=== PATIENT | male | born 1980 | race Caucasian/White ===

== ENCOUNTER 2019-06-30 08:05 | Outpatient (CLI) | payer BC, SELFPAY ==
--- NOTE | 2019-07-11 07:22 | SLEEP_ITS ---
Basic Nocturnal Polysomnogram. DATE OF STUDY: 06/30/2019 REASON FOR THIS STUDY: Insomnia, unspecified sleep apnea. HISTORY: The patient is a 39-year-old male, 72 inches tall, weighing 195 pounds with a body mass index of 24.1. His complaints include loud snoring with witnessed apneas, never feeling completely rested and this has been going on many years. He has tried mouthguard and adhesive strips without success. There is a positive family history of sleep apnea in his father. He has difficulty waking in the morning. He has excessive daytime sleepiness and wakes throughout the night. He constantly snores loudly enough that others complain about it. He rarely awakens at night with heartburn, belching, or coughing. He occasionally has trouble sleeping if he has a cold. He does not have any kassandra gasping for breath at night. He has been told by others on occasion that he has difficulty breathing at night. He does not sweat excessively at night or have pounding of his heart at night. He rarely falls asleep during the day, never involuntarily, and never while driving. There is no loss of muscle tone with strong emotion. He does not feel paralyzed on waking or falling asleep. He does not have vivid dreamlike scenes upon waking or falling asleep. He is not afraid to go to sleep. He does not have nightmares. He rarely remembers his dreams. He rarely kicks at night. Bedtime is 10 p.m., taking 10 minutes to fall asleep, waking 1 or 2 times at night for an hour or more. During this time, he will watch TV. He wakes in the morning at 5:30 a.m. On the weekends, he sleeps an hour later. He does take naps and a short nap can be refreshing. MEDICAL COMORBIDITIES: Anxiety. MEDICATIONS: Buspirone 10 mg a day. HABITS: Tobacco 2 cigarettes a day. Caffeine 2 beverages a day. Alcohol 1 per day. DESCRIPTION OF THE STUDY: On the Adrian Sleepiness Scale, his score was 4. This was conducted as a full night attended nocturnal polysomnogram using the [employer] multiple channel system including EOG, EEG, submental EMG, EKG, nasal and oral airflow using thermistors and nasal pressure sensors, chest and abdominal belts, body position data, and pulse oximetry. The study was scored using CMS guidelines. Duration of the study was 453 minutes. Sleep time was 361 minutes. Sleep efficiency was 79.7%. Sleep latency was 11.9 minutes. REM latency was prolonged at 145 minutes. He had 37 awakenings. The patient spent 18.2% of the study, awake after sleep onset 80.1 minutes. Sleep architecture showed 7% stage 1 sleep, 53.4% stage 2 sleep. No stage 3 sleep and 21.4% stage REM. The sleep architecture by stages of sleep was not bad other than increased wakefulness after sleep onset and multiple shifts between wakefulness stage I and stage II during sleep. He spent 8% of the study supine, the remainder was nonsupine. He had 4 REM cycles. The overall apnea-hypopnea index was 1. He had no supine REM unfortunately. He had no events in nonsupine REM. He had 3 obstructive apneas in supine non-REM for an index of 5.1. He had 3 obstructive apneas in nonsupine non-REM for an index of 0.8. The supine index was 5.1. Nonsupine index was 0.6. Lowest desaturation 93%. No time spent below 88%. There was 1 desaturation of 4% or greater for an index of 0.1. AROUSALS: 107 arousals for an index of 14.2. He had 3 apneas for an index of 0.4, 24 snores for an index of 33.2, 79 spontaneous arousals for an index of 10.5, and 1 limb movement causing arousal for an index of 0.1. LIMB MOVEMENTS: 6 limb movements for an index of 1.0. SNORING: Moderate, 188 episodes. EKG: Showed sinus bradycardia with a mean heart rate of 55. EEG: Unremarkable. IMPRESSION: This attended sleep study s
== END 2019-06-30 08:06 | disposition home or self-care (01) ==
LOC: ANHCSM 08:05
PROVIDERS: PCP Family Medicine; Visit Provider Family Medicine
DX: G47.00 Insomnia, unspecified (principal); G47.30 Sleep apnea, unspecified
CPT/HCPCS: 95810

== ENCOUNTER → 2020-12-19 15:13 | Outpatient (CLI) | payer BC, SELFPAY ==
--- NOTE | ~2020-12-19 | XR_ITS ---
EXAMINATION:XR cervical spine 4-5V DATE: 12/19/2020 15:37 INDICATION: Neck pain TECHNIQUE: AP, lateral, lateral swimmers and odontoid views of the cervical spine are provided. COMPARISON: 04/14/2012 FINDINGS: Alignment is normal. The odontoid is intact. No fracture is identified. Vertebral body heig hts and disk spaces are normal. Prevertebral soft tissues are normal. Small degenerative osteophytes project from the anterior endplates of multiple vertebral bodies. There is mild multilevel facet and vertebral joint osteoarthritis IMPRESSION: 1. Mild cervical spondylosis without acute findings. Reviewed, dictated and finalized at location B.
--- NOTE | ~2020-12-19 | XR_ITS ---
EXAMINATION: XR lumbar spine 6V w bending DATE: 12/19/2020 15:37 INDICATION: Low back pain TECHNIQUE: Anteroposterior, lateral in neutral, flexion and extension, and bilateral oblique views of the lumbar spine, and cone-down lateral view of the lumbosacral junction were obtained. COMPARISON: None. FINDINGS: Bone alignment is normal. There is no laxity with flexion or extension. No fracture is iden tified. The vertebral body heights are maintained. The intervertebral disc spaces are normal. There i s mild facet osteoarthritis of the lower lumbar spine. IMPRESSION: 1. Mild lumbar spondylosis without acute findings. Reviewed, dictated and finalized at location B.
== END ==
PROVIDERS: PCP Family Medicine; Visit Provider Nurse Practitioner Family
DX: M47.896 Other spondylosis, lumbar region (principal); M47.892 Other spondylosis, cervical region
CPT/HCPCS: 72050; 72114

== ENCOUNTER 2025-02-05 00:38 | Day surgery (SDC) | payer BC, SELFPAY ==
[2025-01-28 13:31] VITALS: BMI 27.1
--- OUTSIDE RECORDS SUMMARY | 2025-02-05 00:41 | XMS_ITS | Encounter Summary ---
Author Organization [facility] Address [address] [place] [address] Care Team Providers Care Cra Name Role Phone Provider, No Pcp Primary Care Provider Unavailab Eris Lemus Primary Care Provider Encounter Details Date Type Department Care Team (Late Contact Info) Description 02/18/2024 Lab Requisition [facility] - Pathology Lab [address] [place] [address] Najma Gibbs MD [address] [place] [address] [place] [address] Illness, unspecified Social History Tobacco Use Types Packs/Day Years Used Date Smoking Tobacco: Some Days Cigarettes Smokeless Tobacco: Never Alcohol Use Standard Drinks/Week Comments Yes 0 (1 standard drink = 0.6 oz pur e alcohol) occ Sex and Gender Information Value Date Recorded Sex Assigned at Not on file 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 Gender Identity Not on file Sexual Orientation Not on file documented as of this encounter Plan of Treatment Upcoming Encounters Date Type Department Care Team (Late Contact Info) Description 03/21/2025 3:30 PM CR[employer] G[employer]IN OR [employer]IVE[employer] FARM MANAGER Office Visit [facility] - ENT [address] [place] [phone] Najma Gibbs MD [address] [place] [address] [place] [address] documented as of this encounter Procedures Procedure Name Priority Date/Time Associated Diagnosis Comments PATHOLOGY TISSUE Routine 02/17/2024 8:20 AM CDT Illness, unspecified documented in this encounter Results * PATHOLOGY TISSUE (02/17/2024 8:20 AM CDT) Case Report Surgical Pathology Report Case: [id number] Authorizing Provider: Najma Gibbs MD Collected: 02/17/2024 08:20 AM Ordering Location: [facility] - Received: 02/18/2024 11:51 AM Pathology Lab Pathologist: Pedrito De La Torre MD Specimen: Nasal Contents, bilateral nasal contents 02/21/2024 1:37 PM CDT [facility] Final Diagnosis Sinus contents, removal: Benign respiratory mucosa with chronic inflammation and tissue eosinophilia. 02/21/2024 1:37 PM CDT [facility] at 1337 CDT Microscopic Description and Comment Microscopic examination is performed and supports the final diagnosis. 02/21/2024 1:37 PM CDT [facility] Clinical History Chronic sinusitis 02/21/2024 1:37 PM CDT [facility] Gross Description The requisition and specimen(s) are identified with the patient's name Bharath Metzger. Received in formalin, specimen A, are multiple pieces of whitney-pink tissue and clotted blood fragments aggregating to 6.2 x 6.2 x 2.4 cm, of which a communications representative sampling is submitted in a single cassette labeled A1. RB 02/21/2024 1:37 PM CDT [facility] Pathologist Location at [facility] 02/21/2024 1:37 PM CDT [facility] Disclaimer The performance characteristics of all immunohistochemical and indirect immunofluorescence stains (if any) cited in this report were determined by the Histopathology Laboratory of [facility]. Some of these tests were developed by our own laboratory and have not been cleared or approved by the US Food and Drug Administration. The FDA does not require this test to go through premarket FDA review. These tests are used for clinical purposes. They should not be regarded as investigational or for research. This laboratory is certified under the Clinical Laboratory Improvement Amendments (CLIA) as qualified to perform high complexity clinical laboratory testing. This case has been personally reviewed and interpreted by the attending (teaching) pathologist. 02/21/2024 1:37 PM CDT [facility] Embedded Images 02/21/2024 1:37 PM CDT [facility] Pathology/Cytolo gy NASAL CONTENTS / Unknown 02/17/2024 8:20 AM CDT 02/18/2024 11:51 AM CDT Najma Gibbs MD LAB - PATHOLOGY/CYTOLOGY OR DERABLES Final Result Performing Organization Address City/State/[facility] Co de Phone Number [facility] [address] [phone] documented in this encounter Visit Diagnoses Diagnosis Illness, unspecified documented in this encounter Care Teams Cra Relationship Specialty Start Date End Date Provider, No Pcp PCP - General 12/22/23 02/22/24 Eris Hernandez [address] [facility] [address] [place] [address] PCP - General Orthopedic Surgery 02/23/24 documented as of this encounter
--- OUTSIDE RECORDS SUMMARY | 2025-02-05 00:41 | XMS_ITS | Clinical Summary ---
Author Organization [facility] Charge Payment Address [address] [facility] [place] [address] Care Team Providers Care Telemarketing Fundraiser Name Role Phone Eris Hernandez Primary Care Provider [phone] Source Comments [facility] Charge Payment,non-owned Affiliates and Associated Physician Practices is amultiple site organization consisting of ambulatory clinics and hospital sitesin [place], [place], [place] and [place]. This disclosure is being madepursuant to the Care Everywhere program and may not contain all information available regarding this patient. Last updated 18.[facility] Charge Payment Allergies No known active allergies Medications * Be aware that medications may not be up to date on this document. Alwaysverify current medications with the patient. DULoxetine (Cymbalta) 30 MG capsule 4 Active fluticasone propionate (Flonase) 50 MCG/ACT nasal spray SHAKE LIQUID AND USE 1 TO 2 SPRAYS IN EACH NOSTRIL TWICE DAILY 4 Active triamcinolone acetonide (Kenalog) 0.1 % cream 4 Active predniSONE (Deltasone) 10 MG tablet 40mg po qam x 2days, 30mg po qam x 2days, 20mg po qam x 2days, 10mg po qam x 2days 20 tablet 4 Active Additional Information Patient not taking.Reported on 01/12/2024 sildenafil (Viagra) 50 MG tablet Take 1 (one) tablet by mouth once as needed 4 Active oxyCODONE, immediate release, (Roxicodone) 5 MG tablet Take 1 (one) tablet by mouth every 6 hours as needed for Pain 4 Active cefUROXime (Ceftin) 250 MG tablet Take 1 (one) tablet by mouth 2 times daily 4 Active Mometasone Furoate Use 1 mg 2 times daily Compound 1 mg capsules. Mix contents of 1 capsule in 240 ml saline, and irrigate half in each nostril twice daily. 60 g 11 4 Active mupirocin (Bactroban) 2 % ointment Apply to affected area 3 times daily 22 g Active Active Problems Problem Noted Date Diagnosed Date Chronic pansinusitis 12/22/2023 Deviated nasal septum 12/22/2023 Hypertrophy of both inferior nasal turbinates Immunizations Immunization Administration Dates Next Due Covid Moderna primary monova lent 12+ yr 0.5mL 04/13/2021,08/19/2020,07/22/2020 DTP, HISTORIC VACCINE 1978,1978,07/10 INFLUENZA VACCINE, CELL CULT URE, QUADR. (FLUCELVAX QUADRIVALENT; 6MO+) (CCIIV4) 04/22/2019 INFLUENZA VACCINE, QUADR. (F LUZONE; FLULAVAL; FLUARIX; AFLURIA QUADRIVALENT; 6MO+), 0.5 ML (IIV4) 04/02/2020 MMR VACCINE 09/23/1979 POLIO OPV 1978,1978,1978 TDAP, HISTORIC VACCINE 09/17/2021 Social History Tobacco Use Types Packs/Day Years Used Date Smoking Tobacco: Some Days Cigarettes Smokeless Tobacco: Never Tobacco Cessation:Ready to Q uit: Not Asked; Counseling Given: Not Answered Alcohol Use Standard Drinks/Week Comments Yes 0 (1 standard drink = 0.6 oz pur e alcohol) occ Sex and Gender Information Value Date Recorded Sex Assigned at Not on file Legal Sex Male 6:12 PM UX ARCHITECT Gender Identity Not on file Sexual Orientation Not on file Last Filed Vital Signs Vital Sign Reading Time Taken Comments Blood Pressure 128/86 07/05/2024 3:01 PM UX ARCHITECT Pulse 87 07/05/2024 3:01 PM UX ARCHITECT Temperature - - Respiratory Rate - - Oxygen Saturation 96% 12/22/2023 2:34 PM CDT Inhaled Oxygen Concentration - - Weight 97.5 kg (215 lb) 07/05/2024 3:01 PM UX ARCHITECT Height 182.9 cm (6') 07/05/2024 3:01 PM UX ARCHITECT Body Mass Index 29.16 07/05/2024 3:01 PM UX ARCHITECT Plan of Treatment Upcoming Encounters Date Type Department Care Team (Late st Contact Info) Description 03/21/2025 3:30 PM UX ARCHITECT Office Visit [facility] - ENT [address] [facility], [place] [address] Najma Gibbs MD [facility] [place] [address] Health Maintenance Due Date Last Done Comments COLOGUARD (AGES 45-75) - COLON CA SCREENING 1978 COLON MONITORING 1978 COLONOSCOPY - COLON CA SCREENING 1978 CT COLONOGRAPHY - COLON CA SCREENING 1978 Colorectal Cancer Screening 1978 FIT - COLON CA SCREENING 1978 FLEX SIG - COLON CA SCREENING 1978 LIPID TESTING 1978 HIV SCREENING 1993 HEPATITIS C SCREENING 06/04/1996 HEPATITIS B VACCINE (1 of 3 - 19+ 3-dose series) 1997 PNEUMOCOCCAL VACCINE (1 of 2 - PCV) 1997 SCREENING FOR DIABETES 12/22/2023 DEPRESSION SCREENING 05/10/2024 COVID-19 VACCINE (4 - season) 2025 04/13/2021, 08/19/2020, 07/22/2020 INFLUENZA VACCINE (#1) 2025 04/02/2020, 2018 ZOSTER VACCINE (1 of 2) 2028 DTAP/TDAP/TD VACCINES (5 - Td or Tdap) 09/18/2031 09/17/2021, 1978, 1978, Additional history exists HIB VACCINE Aged Out No longer eligi ble based on patient's age to complete this topic HPV VACCINE Aged Out No longer eligi ble based on patient's age to complete this topic MENINGOCOCCAL (Group B) VACCINE SHARED DECISION-MAKING Aged Out No longer eligible based on patient's age to complete this topic MENINGOCOCCAL GROUPS A/C/Y/W VACCINE Aged Out No longer eligible based on patient's age to complete this topic Insurance ANTHEM Care Teams Telemarketing Fundraiser Relationship Specialty Start Date End Date Eris Hernandez [address] [facility] [address] [place] [address] PCP - General Orthopedic Surgery 02/23/24
[2025-02-05 10:09] VITALS: BMI 27.6
[2025-02-05 10:11] VITALS: BP 126/75; PULSE 77; RESP 16; TEMP 36.6; O2SAT 98
[2025-02-05] MEDS: LACTATED RINGERS 1,000 ML 150 ML IV CONT (10:16)
--- NOTE | 2025-02-05 10:29 | P.PNAN_ITS ---
Anes - Initial Pre Proc Eval Procedure: Operation Date: 02/05/25 11:30 Proposed Procedures p Screening Colonoscopy - Timur Marino MD Date/Time: 02/05/25 10:29 Surgeon: Timur Marino MD Pre Op Diagnosis: Screening Patient Data Age: 44 Gender: M Height: 1.83 m Weight: 92.2 kg Last Vital Signs Temp 97.8 F 02/05/25 10:11 Pulse 77 02/05/25 10:11 Resp 16 02/05/25 10:11 BP 126/75 02/05/25 10:11 Pulse Ox 98 02/05/25 10:11 O2 Del Method Room Air 02/05/25 10:11 Allergies Allergy/AdvReac Type Severity Reaction Status Date / Time No Known Allergies Allergy Verified 02/05/25 10:08 Home Medications ?Medication ?Instructions ?Recorded ?Confirmed ?Type duloxetine 30 mg capsule,delayed 30 mg PO DAILY #90 ca ps 10/18/24 02/05/25 Rx release clotrimazole 1 % topical cream 1 applic topical Q12H # 45 grams 01/15/25 02/05/25 Rx sildenafil 50 mg tablet 50 mg PO DAILY PRN sexual ac tivity 01/15/25 01/29/25 Rx #90 tabs Patient hx anesthesia problems: none Family hx anesthesia problems: none Results Review: All pre-operative results and documents have been reviewed as part of the pre- operative evaluation. [facility] Past Medical History Medical History BMI 27.0-27.9,adult BMI 26.0-26.9,adult BMI 28.0-28.9,adult Anxiety Body mass index [BMI] 27.0-27.9, adult (02/17/19) Cervicalgia Diabetes mellitus screening Dietary counseling and surveillance (01/10/19) Encounter for surgical aftercare following surgery of digestive system Grade III hemorrhoids Inflamed external hemorrhoid Lipid screening Screening PSA (prostate specific antigen) Screening for thyroid disorder Snoring Thrombosed external hemorrhoid Tiredness BMI 29.0-29.9,adult Family History Family History Father Hypertension Mother Thyroid activity decreased Sibling H/O sinus surgery Social History Social History Smoking status: Current some day smoker Tobacco type: cigarettes Second hand tobacco smoke exposure: No Smoking end date: 05/10/13 Alcohol intake: current Alcohol use details: socially Substance use: never Substance use type: does not use Do You Feel Safe in your Home?: Yes Lack of Transportation: No Lack of Food: Never True Current Housing: I Have Housing Concerned About Future Housing: No Difficulty Paying Gas/Electric Bills: No Difficulty Paying for Meds: No Currently Unemployed: No Education: Bachelor's Degree Difficulty w/ Childcare or Family Care: No Living arrangements: with family Occupation/Education: occupation Additional occupation/education comments: Human resources Gender identity (if verbalized by the patient): Male Spiritual care concerns: No Anes - Eval Final PreProcedure Day of Procedure 02/05/25 10:29 Patient weight: overweight Lungs: normal air movement Airway: Mallampati scale class II Neurological: alert and oriented Last oral intake: >/= 8 hours ASA classification: II Emergent: no Anesthetic plan: proceed Anesthesia type and monitoring: general GIVS and standard monitoring Results Review: All pre-operative results and documents have been reviewed as part of the pre- operative evaluation. BMI 27, pt smokes about 1 pack/week, no cp or sob. Informed Consent: The patient's anesthetic plan and its attendant risks and benefits were discussed with the patient/family/POA. Questions were solicited and answers provided to the satisfaction of the patient/family/POA.
--- NOTE | 2025-02-05 10:33 | P.HP_ITS ---
History of Present Illness History of Present Illness Consent: Risks, benefits, and alternatives have been discussed and questions answered. Patient agrees to proceed with procedure. Chief complaint: Screening Narrative: Bhraath Metzger is a 44 year old male here for first screening colonoscopy Review of Systems Review of Systems: All systems reviewed & are unremarkable except as noted in HPI and below PMFSH Past Medical History Medical History (Updated 02/05/25 @ 10:36 by Timur Marino MD) Colon cancer screening BMI 27.0-27.9,adult BMI 26.0-26.9,adult BMI 28.0-28.9,adult Anxiety Body mass index [BMI] 27.0-27.9, adult (02/17/19) Cervicalgia Diabetes mellitus screening Dietary counseling and surveillance (01/10/19) Encounter for surgical aftercare following surgery of digestive system Grade III hemorrhoids Inflamed external hemorrhoid Lipid screening Screening PSA (prostate specific antigen) Screening for thyroid disorder Snoring Thrombosed external hemorrhoid Tiredness BMI 29.0-29.9,adult Family History Family History Father Hypertension Mother Thyroid activity decreased Sibling H/O sinus surgery Social History Social History Smoking status: Current some day smoker Tobacco type: cigarettes Second hand tobacco smoke exposure: No Smoking end date: 05/10/13 Alcohol intake: current Alcohol use details: socially Substance use: never Substance use type: does not use Do You Feel Safe in your Home?: Yes Lack of Transportation: No Lack of Food: Never True Current Housing: I Have Housing Concerned About Future Housing: No Difficulty Paying Gas/Electric Bills: No Difficulty Paying for Meds: No Currently Unemployed: No Education: Bachelor's Degree Difficulty w/ Childcare or Family Care: No Living arrangements: with family Occupation/Education: occupation Additional occupation/education comments: Human resources Gender identity (if verbalized by the patient): Male Spiritual care concerns: No Meds Home Medications and Allergies Home Medications ?Medication ?Instructions ?Recorded ?Confirmed ?Type duloxetine 30 mg capsule,delayed 30 mg PO DAILY #90 ca ps 10/18/24 02/05/25 Rx release clotrimazole 1 % topical cream 1 applic topical Q12H # 45 grams 01/15/25 02/05/25 Rx sildenafil 50 mg tablet 50 mg PO DAILY PRN sexual ac tivity 01/15/25 01/29/25 Rx #90 tabs Allergies Allergy/AdvReac Type Severity Reaction Status Date / Time No Known Allergies Allergy Verified 02/05/25 10:08 Vital Signs Vital Signs - 24 hr 02/05/25 10:11 Temperature 97.8 F Pulse Rate 77 Respiratory Rate 16 Blood Pressure 126/75 Pulse Oximetry 98 Oxygen Delivery Room Air Exam Const: General: comfortable and no acute distress HENMT: Face/Nose/Sinus: Normal nares present Eyes: General: appearance normal, both eyes and all related structures Neck: Neck: no JVD Resp: Auscultation: clear to auscultation bilaterally Cardio: Rate: regular rate Rhythm: regular rhythm GI: Inspection: non-distended GI Palp: Yes Soft to palpation Skin: General skin exam: normal color Extrem: General: normal to inspection Psych: Mental Status: mental status grossly normal Assessment and Plan Assessment and plan (1) Colon cancer screening: Code(s): Z12.11 - Encounter for screening for malignant neoplasm of colon Status: Acute Assessment and Plan: colonoscopy
[2025-02-05 10:47] VITALS: BP 100/64; PULSE 67; RESP 19; O2SAT 99
--- NOTE | 2025-02-05 10:48 | S_PTH ---
PATIENT: Bharath Metzger LOC: [facility] Stewart#:[id number] AGE/SX: 44/M ROOM: RE02/05/[address]: Timur Marino MD : 1980 BED: DIS: 02/05/2025 SPEC #: [id number] RECD: 02/05/25 13:22 STATUS: CHERYL REFrederic #: [id number] CHELSIE: 02/05/25 10:[address]: Timur Marino DEPT: [facility] Surgical RECD BY: Clari Galaviz ENTERED: 02/05/25 13:23 SP TYPE: Surgical OTHR DR: Eirs Segura MD Tissues: A - Colon Polypectomy B - Colon Polypectomy Procedures: Hematoxylin and Eosin Stain Gross and Microscopic Level 4
[2025-02-05 10:57] VITALS: BP 111/66; PULSE 60; RESP 17; O2SAT 100
[2025-02-05 11:07] VITALS: BP 115/72; PULSE 56; RESP 15; O2SAT 100
== END 2025-02-05 11:15 | disposition home or self-care (01) ==
PROVIDERS: PCP Family Medicine; Visit Provider Internal Medicine Gastroenterology
PROC: 0DJD8ZZ Inspection of Lower Intestinal Tract, Via Natural or Artificial Opening Endoscopic (ICD-10-PCS; CPT 45378; principal; 2025-02-05 11:30)
DX: Z12.11 Encounter for screening for malignant neoplasm of colon (principal); D12.5 Benign neoplasm of sigmoid colon; D12.3 Benign neoplasm of transverse colon; F41.9 Anxiety disorder, unspecified; F17.210 Nicotine dependence, cigarettes, uncomplicated
CPT/HCPCS: 45380; 45385; 88305; J2704; J7120